=== PATIENT | female | born 1955 | race Caucasian/White ===

== ENCOUNTER 2016-10-17 21:39 | Emergency (ER) | payer BC ==
[2016-10-17] MEDS ORDERED: Lidocaine 1% w/Epinephrine 1:100K 30 ML VIAL ONE (21:56)
== END 2016-10-17 22:50 | disposition home or self-care (01) ==
LOC: BURERS 21:39
DX: S01.511A Laceration without foreign body of lip, initial encounter (principal); J44.9 Chronic obstructive pulmonary disease, unspecified; W19.XXXA Unspecified fall, initial encounter
CPT/HCPCS: 12011; J2001

== ENCOUNTER 2016-10-18 15:03 | Emergency (ER) | payer BC | END 2016-10-18 15:48 | disposition home or self-care (01) | LOC: BURERS 15:03 | DX: S60.221A Contusion of right hand, initial encounter (principal); S01.511D Laceration without foreign body of lip, subsequent encounter; X58.XXXA Exposure to other specified factors, initial encounter | CPT/HCPCS: 99283 ==

== ENCOUNTER 2017-12-19 15:56 | Emergency (ER) | payer BC ==
[2017-12-19] MEDS ORDERED: Nitroglycerin 2% Ointment 1 INCH/1 GM Packet ONE (16:13)
[2017-12-19 16:30] LABS: #Basophils 0.1 thou/uL (0.0-0.2); #Eosinphils 0.1 thou/uL (0.0-0.7); #Lymphocytes 2.3 thou/uL (1.20-3.40); #Monocytes 0.6 thou/uL (0.11-0.59); #Neutrophils 3.7 thou/uL (1.40-6.50); %Basophils 1.5 % (0.0-1.0); %Eosinophils 2.1 % (0.0-10.0); %Monocytes 8.6 % (0.0-10.0); %Neutrophils 53.8 % (42.0-75.0); Hemoglobin 13.4 g/dL (12.0-16.0); Mean Corpuscular HGB CONC 32.7 g/dL (32.0-36.0); Mean Corpuscular Hemoglobin 30.2 pg (27.0-31.0); Mean Corpuscular Volume 92.5 fL (78.0-98.0); Mean Platelet Volume 8.6 fL (7.4-10.4); Platelet Count 289 thou/uL (130-400); Red Blood Cell (RBC) Count 4.42 mill/uL (4.20-5.40); White Blood Cell (WBC) Count 6.9 thou/uL (4.8-10.8)
[2017-12-19 16:48] LABS: ALT (SGPT) 20 U/L (8-55); AST (SGOT) 21 U/L (5-34); Albumin 4.2 g/dL (3.4-4.8); Alkaline Phosphatase 68 U/L (40-150); Anion Gap 13 mmol/L (10-20); BUN (Urea Nitrogen) 12 mg/dL (9.8-20.1); Bilirubin, Total 0.4 mg/dL (0.2-1.2); CK (CPK) 75 U/L (29-168); Calc. Creatinine Clearance 0 mL/min (70-130); Calcium 9.7 mg/dL (7.8-10.44); Carbon Dioxide 27 mmol/L (23-31); Chloride 104 mmol/L (98-107); Estimated GFR-MDRD 79; Globulin 2.8 g/dL (2.4-3.5); Glucose 100 mg/dL (80-115); Lipase 30 U/L (8-78); Potassium 4.1 mmol/L (3.5-5.1); Sodium 140 mmol/L (136-145)
[2017-12-19 16:49] LABS: CKMB 1.3 ng/mL (0-6.6); Troponin I Less than 0.010 ng/mL (< 0.028)
[2017-12-19] MEDS ORDERED: Nitroglycerin 0.4 MG TAB (25 Tab Bottle) ONE (17:57)
[2017-12-19 19:30] LABS: Troponin I Less than 0.010 ng/mL (< 0.028)
--- NOTE | 2017-12-19 19:56 | RAD ---
PORTABLE CHEST: 12/19/17 An AP portable film at 1607 is compared with a 08/30/17 study. The heart remains normal in size and the lungs are clear. No infiltrate, effusion or congestive grady e was seen. The trachea is midline and the mediastinum appears normal. IMPRESSION: No acute thoracic findings. POS: HOME
== END 2017-12-19 20:00 | disposition home or self-care (01) ==
LOC: BURERS 15:56
DX: R07.89 Other chest pain (principal); J44.9 Chronic obstructive pulmonary disease, unspecified; Z87.891 Personal history of nicotine dependence; Z79.899 Other long term (current) drug therapy
CPT/HCPCS: 71045; 80053; 82550; 82553; 83690; 84484; 85025; 85379; 93005

== ENCOUNTER 2018-08-28 17:15 | Outpatient (CLI) | payer BC ==
--- NOTE | 2018-08-28 18:30 | RAD ---
RIGHT KNEE: 08/28/18 Three views. HISTORY: Knee pain. Joint spaces are maintained. Mild degenerative change. Mild spurring from the posterior patella and m inimal spurring from the condyles. No fracture or acute abnormality. No evidence of joint effusion. IMPRESSION: Mild degenerative change. POS: [facility]
== END 2018-08-28 17:16 | disposition home or self-care (01) ==
LOC: BURRAD 17:15
PROVIDERS: ATTEND Family Medicine
DX: M25.561 Pain in right knee (principal); M17.11 Unilateral primary osteoarthritis, right knee

== ENCOUNTER 2019-12-28 13:06 | Emergency (ER) | payer BC | END 2019-12-28 13:23 | disposition home or self-care (01) | LOC: BURERS 13:06 | DX: R09.81 Nasal congestion (principal); R05 Cough; J44.9 Chronic obstructive pulmonary disease, unspecified; Z87.891 Personal history of nicotine dependence | CPT/HCPCS: 99281 ==